=== PATIENT | female | born 1970 | race Caucasian/White ===

== ENCOUNTER 2020-06-30 07:14 | Inpatient (IN) ==
[2020-06-30] MEDS ORDERED: Famotidine 20 MG/2 ML VIAL IVP ONE (07:27)
[2020-06-30] MEDS ORDERED: Gabapentin 300 MG CAPSULE PO ONE (07:28)
[2020-06-30] MEDS ORDERED: Acetaminophen IV 1,000 MG/100 ML BAG IVPB ONE (07:28)
[2020-06-30] MEDS ORDERED: Ringers Solution, Lactated 1,000 ML IVC SCH (08:15)
[2020-06-30] MEDS ORDERED: *HR* OxyCODONE Immed Rel 5 MG TABLET PO PRN (08:23)
[2020-06-30] MEDS ORDERED: Ondansetron 4 MG/2 ML VIAL IVP ONE (08:23)
[2020-06-30] MEDS ORDERED: Scopolamine Patch 1.5 MG PATCH.TD72 TD ONE (08:24)
[2020-06-30] MEDS ORDERED: CeFAZolin Syr 2,000MG/20 ML 2,000 MG/20 ML SYRINGE IVPB ONE (08:32)
[2020-06-30] MEDS ORDERED: *HR* Succinylcholine 200 MG/10 ML VIAL IVP ONE (08:59)
[2020-06-30] MEDS ORDERED: Dexamethasone 4 MG/ML VIAL ONE (08:59)
[2020-06-30] MEDS ORDERED: Lidocaine -MPF 4% 5 ML AMPUL ONE (08:59)
[2020-06-30] MEDS ORDERED: *HR* FentaNYL (PF) 100 MCG/2 ML VIAL ONE ×2 (08:59→09:47)
[2020-06-30] MEDS ORDERED: Ondansetron 4 MG/2 ML VIAL ONE (08:59)
[2020-06-30] MEDS ORDERED: *HR* Propofol 200 MG/20 ML VIAL IVP ONE (08:59)
[2020-06-30] MEDS ORDERED: Lidocaine -MPF 2% 2 ML VIAL ONE (08:59)
[2020-06-30] MEDS ORDERED: *HR* Midazolam HCl 2 MG/2 ML VIAL ONE (08:59)
[2020-06-30] MEDS ORDERED: *HR* Rocuronium Bromide 50 MG/5 ML VIAL ONE (08:59)
[2020-06-30] MEDS: *HR* HYDROmorphone PF 0.5 MG/0.5 ML SYRINGE IVP PRN ×4 (10:35→11:20)
[2020-06-30] MEDS ORDERED: Ondansetron 4 MG/2 ML VIAL IVP PRN (12:05)
[2020-06-30] MEDS ORDERED: Naloxone 0.4 MG/ML INJ IVP PRN (12:05)
[2020-06-30] MEDS: 0.9 % Sodium Chloride 1,000 ML IVC SCH (13:05)
[2020-06-30] MEDS: *HR* HYDROcodone/Acet 5/325 mg TABLET PO PRN ×3 (13:13→21:26)
[2020-06-30] MEDS: *HR* Heparin 5,000 UNIT/ML VIAL SQ SCH ×2 (13:13→21:27)
[2020-06-30] MEDS: Gabapentin 300 MG CAPSULE PO SCH ×2 (13:14→21:26)
[2020-06-30] MEDS: Ketorolac 15 MG/ML VIAL IVP SCH ×3 (13:19→23:24)
[2020-06-30] MEDS: Ipratropium/Albuterol Neb 3 ML IH SCH ×4 (15:02→23:04)
[2020-06-30] MEDS: Famotidine 20 MG TABLET PO SCH (16:51)
[2020-06-30] MEDS: Sennosides/Docusate Sodium TABLET PO SCH (21:26)
[2020-07-01] MEDS: 0.9 % Sodium Chloride 1,000 ML IVC SCH (01:23)
[2020-07-01] MEDS: *HR* HYDROcodone/Acet 5/325 mg TABLET PO PRN ×4 (01:24→20:59)
[2020-07-01 03:49] LABS: Hematocrit 36.6 % (35.3-44.9); Hemoglobin 11.9 g/dL (11.5-15.4); Mean Corpuscular HGB Conc 32.5 g/dL (31.6-35.5); Mean Corpuscular Hemoglobin 28.3 pg (28.0-33.3); Mean Corpuscular Volume 87.1 fL (83.0-100.0); Mean Platelet Volume 9.6 fL (9.4-12.4); Platelet Count 297 K/mcL (140-400); Red Cell Distribution Width 13.4 % (11.5-14.5); White Blood Count 15.1 K/mcL (4.3-11.1)
[2020-07-01 04:05] LABS: BUN/Creatinine Ratio 19 (6-26); Blood Urea Nitrogen 12 mg/dL (6-20); Calcium 8.9 mg/dL (8.6-10.3); Carbon Dioxide 21 mEq/L (23-29); Chloride 104 mEq/L (98-107); Glucose 137 mg/dL (70-105); Magnesium 1.8 mg/dL (1.6-2.6); Osmolality,Calculated 286 (280-300); Potassium 4.2 mEq/L (3.5-5.1); Sodium 137 mEq/L (136-145); eGFR For African Americans > 60 (> 60); eGFR For Non-African Americans > 60 (> 60)
[2020-07-01] MEDS: Ipratropium/Albuterol Neb 3 ML IH SCH ×2 (04:13→07:19)
[2020-07-01] MEDS: Ketorolac 15 MG/ML VIAL IVP SCH ×3 (05:28→17:47)
[2020-07-01] MEDS: *HR* Heparin 5,000 UNIT/ML VIAL SQ SCH ×3 (05:28→20:58)
[2020-07-01] MEDS: Levothyroxine 25 MCG TABLET PO SCH (05:29)
[2020-07-01] MEDS: hydroCHLOROthiazide 25 MG TABLET PO SCH (08:46)
[2020-07-01] MEDS: Sennosides/Docusate Sodium TABLET PO SCH ×2 (08:46→20:59)
[2020-07-01] MEDS: Famotidine 20 MG TABLET PO SCH ×2 (08:46→17:47)
[2020-07-01] MEDS: Venlafaxine XR (24 HR) 75 MG CAP.ER.24H PO SCH (08:46)
[2020-07-01] MEDS: Gabapentin 300 MG CAPSULE PO SCH ×3 (08:46→20:59)
[2020-07-02] MEDS: Ketorolac 15 MG/ML VIAL IVP SCH ×2 (00:38→05:26)
[2020-07-02] MEDS: *HR* HYDROcodone/Acet 5/325 mg TABLET PO PRN (04:00)
[2020-07-02] MEDS: Levothyroxine 25 MCG TABLET PO SCH (05:27)
[2020-07-02] MEDS: *HR* Heparin 5,000 UNIT/ML VIAL SQ SCH (05:27)
[2020-07-02 07:24] VITALS: BP 142/94
[2020-07-02] MEDS: Venlafaxine XR (24 HR) 75 MG CAP.ER.24H PO SCH (08:05)
[2020-07-02] MEDS: Gabapentin 300 MG CAPSULE PO SCH (08:05)
[2020-07-02] MEDS: Famotidine 20 MG TABLET PO SCH (08:05)
[2020-07-02] MEDS: Sennosides/Docusate Sodium TABLET PO SCH (08:05)
[2020-07-02] MEDS: hydroCHLOROthiazide 25 MG TABLET PO SCH (08:05)
== END 2020-07-02 10:27 | disposition home or self-care (01) | DRG 137 ==
LOC: SAMDAY 07:14 → 2NNU 12:37
PROVIDERS: ADMIT Thoracic Surgery (Cardiothoracic Vascular Surgery); ATTEND Thoracic Surgery (Cardiothoracic Vascular Surgery)